=== PATIENT | male | born 1940 | race Caucasian/White ===

== ENCOUNTER → 2019-09-15 | Outpatient (CLI) | payer OTHER | END | disposition home or self-care (01) | LOC: TOM 07:50 | DX: K56.50 Intestinal adhesions [bands], unspecified as to partial versus complete obstruction (principal); R19.5 Other fecal abnormalities ==

== ENCOUNTER 2020-04-12 10:26 | Inpatient (IN) | payer OTHER ==
[~2020-04-12] VITALS: Ht 175.3 cm; Wt 71.7 kg
[2020-04-20] MEDS ORDERED: JANUMET XR 50-1 EAC1 PO (13:14)
[2020-04-20] MEDS ORDERED: LOSARTAN-HCTZ1 EACH PO (13:15)
[2020-04-20] MEDS ORDERED: ACTOS15 MG PO (13:15)
[2020-04-20] MEDS ORDERED: CRESTOR5 MG PO (13:16)
[2020-04-20] MEDS ORDERED: AMBIEN5 MG PO (13:17)
[2020-04-20] MEDS ORDERED: TRESIBA IM (13:17)
[2020-04-27] MEDS ORDERED: TRESIBA FL100 UNIT/1 (15:53)
[2020-04-27] MEDS ORDERED: INTEGRA CAPSUL1 EACH (15:54)
== END 2020-04-30 18:11 | disposition home or self-care (01) | DRG 331 ==
LOC: SURG 04-27 06:48 → O/R 04-27 06:48 → SURH 04-27 09:30 → SURG 04-27 21:42
PROVIDERS: ADMIT Colon & Rectal Surgery; ATTEND Colon & Rectal Surgery
PROC: 07TB4ZZ Resection of Mesenteric Lymphatic, Percutaneous Endoscopic Approach (ICD-10-PCS; 2020-04-27)
PROC: 0DTF4ZZ Resection of Right Large Intestine, Percutaneous Endoscopic Approach (ICD-10-PCS; principal; 2020-04-27 13:30)
DX: C18.4 Malignant neoplasm of transverse colon (principal); R59.0 Localized enlarged lymph nodes; D50.8 Other iron deficiency anemias; I11.9 Hypertensive heart disease without heart failure

== ENCOUNTER 2021-06-03 06:18 | Day surgery (SDC) | payer OTHER ==
[~2021-06-03 06:18] MED LIST: ACTOS15 MG PO; AMBIEN5 MG PO; CRESTOR5 MG PO; INTEGRA CAPSUL1 EACH; JANUMET XR 50-1 EAC1 PO; LOSARTAN-HCTZ1 EACH PO; TRESIBA FL100 UNIT/1; TRESIBA IM
== END 2021-06-03 12:10 | disposition home or self-care (01) ==
LOC: AMB-ENDOS 06:18
PROVIDERS: ATTEND Colon & Rectal Surgery
DX: D12.8 Benign neoplasm of rectum (principal); Z20.822 Contact with and (suspected) exposure to COVID-19; K64.1 Second degree hemorrhoids